=== PATIENT | female | born 1990 | race Hispanic/Latino ===

== ENCOUNTER 2019-03-02 07:50 | Outpatient (CLI) | payer BC ==
--- NOTE | 2019-03-02 08:56 | MRI ---
BRAIN MRI WITHOUT CONTRAST: HISTORY: Migraine, with aura. Previously treated arteriovenous malformation. COMPARISON: None. FINDINGS: Calvarial marrow signal intensity: Appropriate T1 marrow signal. Postsurgical changes in the left occ ipital parietal calvarium. Gradient echo sequence: There is hypointensity in the left occipital parietal region. Findings may re present iatrogenic change, from previous intervention for arteriovenous malformation. Brain parenchyma: There are malacic and gliotic changes involving the left occipital parietal lobe, i n the region of the aforementioned gradient echo signal hypointensity. The remainder of the cerebrum demonstrates cortical child-white matter differentiation. Cortical child-white matter differentiation: Preserved, with the exception of the left occipital parie donal region. Restricted diffusion: Central arterial flow voids are maintained. Absent restricted diffusion. White matter signal intensities:No significant T2 or FLAIR white matter hyperintensities. Sinuses: Adequate aeration of the paranasal sinuses and mastoid air cells. IMPRESSION: Postsurgical changes along the left calvarium and left cerebrum as described above. Ferromagnetic sig nal on the axial gradient echo sequence may be due to a glue and, surgical clips, given patient's history of treated AVM. Better interrogation with a noncontrast head CT is recommended, along with po ssible comparison with prior brain MRI performed in [place]. Transcribed Date/Time: 03/02/2019 9:16 AM
== END 2019-03-02 07:51 | disposition home or self-care (01) ==
LOC: BICMRI 07:50
PROVIDERS: ATTEND Psychiatry & Neurology Neurology
DX: G43.109 Migraine with aura, not intractable, without status migrainosus (principal); R90.89 Other abnormal findings on diagnostic imaging of central nervous system; Z98.890 Other specified postprocedural states
CPT/HCPCS: 70551